=== PATIENT | female | born 1965 | race Caucasian/White ===

== ENCOUNTER → 2022-02-13 | Outpatient (CLI) | payer OTHER ==
[2022-02-14 15:10] LABS: HPV 16 Negative (Negative); HPV 18 Negative (Negative); HPV OTHER HR TYPES Negative (Negative)
== END | disposition home or self-care (01) ==
LOC: LAB 11:33 → LAB SHORT 11:33
PROVIDERS: Registered Nurse Community Health
DX: Z12.4 Encounter for screening for malignant neoplasm of cervix (principal)
CPT/HCPCS: 87624; G0123

== ENCOUNTER 2023-02-05 22:43 | Emergency (ER) | payer OTHER ==
[~2023-02-05] VITALS: Ht 167.6 cm; Wt 68.0 kg
[2023-02-06] MEDS ORDERED: CRUTCH2 XX (01:30)
[2023-02-06] MEDS ORDERED: ONDA4ODT MM (01:32)
[2023-02-06] MEDS ORDERED: Percocet 5-3251 EACH PO (01:32)
[2023-02-06 02:00] VITALS: BP 131/91
== END 2023-02-06 02:52 | disposition home or self-care (01) ==
LOC: ER 22:43
DX: S82.851A Displaced trimalleolar fracture of right lower leg, initial encounter for closed fracture (principal); W18.39XA Other fall on same level, initial encounter; Z88.2 Allergy status to sulfonamides; Z88.1 Allergy status to other antibiotic agents
CPT/HCPCS: 73590; 73600; 96361; 96365-59; 96375-59; 99152; 99284-25; A9270; J2405; J3010; J7030

== ENCOUNTER 2023-02-15 10:41 | Day surgery (SDC) | payer OTHER ==
[~2023-02-15] VITALS: Ht 167.6 cm; Wt 67.9 kg
[2023-02-15] VITALS (20 sets, daily range): BP systolic 98–119; BP diastolic 66–83
[~2023-02-15 10:41] MED LIST: CRUTCH2 XX; ONDA4ODT MM; Percocet 5-3251 EACH PO
--- NOTE | 2023-02-15 11:45 | NUR ---
PT IN TO [facility] BY [facility]. History, Chart, Medications and Allergies reviewed before start of procedure.Lungs clear T/O to Auscultation. Patient confirms NPO status and agrees with scheduled surgery. Pre-Op teaching done. Pt verbalizes understanding. Patient States Post-Procedure ride home has been arranged.
--- NOTE | 2023-02-15 12:35 | NUR ---
TIME OUT COMPLETED FOR PERIPHERAL NERVE BLOCK.
--- NOTE | 2023-02-15 16:50 | NUR ---
TIME OUT COMPLETED FOR RESCUE BLOCK.
--- NOTE | 2023-02-15 17:01 | NUR ---
RESCUE NERVE BLOCK (RIGHT SAPHANEOUS NERVE BLOCK WITH ULTRASOUND) RECENTLY COMPLETED BY ANESTHESIA.
--- NOTE | 2023-02-15 17:57 | NUR ---
Patient up to W/C,REPORTS HAVING EQUIPMENT AT HOME. Discharge instructions reviewed with patient. Patient verbalizes understanding. Copy given to patient to take home, [facility] FAMILY. Patient States Post-Procedure ride home has been arranged. Discharged via wheelchair to private car for ride home. PT/FAMILY REPORTS READY TO GO HOME. SENT WITH BELONGINGS,PAPERWORK,ICE BAGS. PT REPORTS PAIN MUCH BETTER. TOLERATING PO.VSS.
== END 2023-02-15 17:57 | disposition home or self-care (01) ==
LOC: ORSCMMR 10:41 → ORD 12:30 → ORSCMMR 17:57
PROVIDERS: Orthopaedic Surgery
PROC: 0QSG04Z Reposition Right Tibia with Internal Fixation Device, Open Approach (ICD-10-PCS; principal; 2023-02-15 12:30)
DX: S82.841A Displaced bimalleolar fracture of right lower leg, initial encounter for closed fracture (principal); W01.0XXA Fall on same level from slipping, tripping and stumbling without subsequent striking against object, initial encounter; J45.909 Unspecified asthma, uncomplicated; F17.210 Nicotine dependence, cigarettes, uncomplicated; J43.9 Emphysema, unspecified
CPT/HCPCS: C1713; C1769; J0690; J1100; J1170; J1885; J2001; J2250; J2371; J2405; J2704; J3010; J7120